=== PATIENT | male | born 2000 | race Caucasian/White ===

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

== ENCOUNTER 2021-01-24 14:21 | Emergency (ER) | payer OTHER, SELFPAY ==
[2021-01-24 14:26] VITALS: BP 139/76; PULSE 88; RESP 18; TEMP 36.5; O2SAT 98; BMI 43.5
--- NOTE | 2021-01-24 14:36 | ED_ITS ---
HPI - COVID General: Chief Complaint: COVID symptoms Stated Complaint: Abdominal Pain, Hx Stomach issues Time Seen by Provider: 01/24/21 14:36 Triage information: Has fever, cough or shortness of breath . Exposure to COVID + person last 14 days History of Present Illness: HPI Narrative: 20-year-old male presents to the ER with abdominal discomfort diarrhea vomiting myalgias low-grade fever minimal cough symptoms for the last 2 to 3 days he is concerned he is Covid. He is not having hematochezia melena hematemesis or coffee-ground emesis no dysuria urgency or frequency. He has had diarrhea during this timeframe. He has a known Covid exposure prior to onset of symptoms. MD complaint: reported COVID exposure Prior covid testing: no COVID 19 common symptoms: positive fever(s), chills, cough, non-productive cough, fatigue, body aches, nausea, vomiting and diarrhea; negative productive cough, dyspnea, headache(s), loss of sense of smell and/or taste, throat pain, nasal congestion or chest tightness COVID 19 other sytmptoms: negative chest pain or requiring oxygen Onset (ago): day(s) (3) Severity: mild Pertinent comorbid conditions: obesity Treatment prior to arrival: none COVID Results: SARS-CoV-2 RNA (RT-PCR) Not detected (NOT DETECTED) 01/24/21 14:51 01/24/21 Review of Systems Const: Reports: fever(s), chills, body aches and fatigue ENMT: Denies: throat pain or nasal congestion Card: Denies: chest pain, edema, dyspnea on exertion or orthopnea Resp: Reports: non-productive cough; Denies: dyspnea or productive cough GI: Reports: nausea, vomiting and diarrhea : Denies: flank pain, dysuria, urinary frequency or urinary urgency Skin/Breast: Denies: rash or pruritus Neuro: Denies: headache(s) Physical Exam Const: COMMON NORMALS: no acute distress GENERAL APPEARANCE: cooperative and comfortable ORIENTATION/CONSCIOUSNESS: Yes awake, Yes oriented to person, Yes oriented to place and Yes oriented to time HENMT: COMMON NORMALS: normocephalic, atraumatic and hearing grossly normal bilaterally HEAD & SCALP: normocephalic and atraumatic Neck/C-Spine: COMMON NORMALS: no JVD Resp: COMMON NORMALS: normal respiratory effort, No retractions, No use of accessory muscles and clear to auscultation bilaterally AUSCULTATION: clear to auscultation bilaterally Cardio: COMMON NORMALS: no JVD, regular rate, regular rhythm and No murmurs present (Cardio) RATE: regular rate RHYTHM: regular rhythm GI: COMMON NORMALS: Soft to palpation and No hepatosplenomegaly present AUSCULTATION: Yes normoactive bowel sounds PALPATION: Yes Soft to palpation, No Tenderness to palpation present (GI), No Guarding due to palpation present (GI) and Yes No hepatosplenomegaly present Extremity: COMMON NORMALS: normal to inspection, capillary refill normal, no clubbing, cyanosis or edema, no calf tenderness and no pedal edema Neuro: SENSORIUM/ORIENTATION: Yes oriented to person, Yes oriented to place and Yes oriented to time Skin: COMMON NORMALS: no rashes or lesions noted GENERAL SKIN EXAM: no rashes or lesions noted Course Vital Signs: Vital signs: Vital Signs Temperature 97.7 F 01/24/21 14:26 Pulse Rate 89 01/24/21 17:37 Respiratory Rate 17 01/24/21 17:37 Blood Pressure 132/74 01/24/21 17:37 Pulse Oximetry 98 01/24/21 17:37 MDM - COVID MDM Narrative: Medical decision making narrative: Clinically along with his history I do suspect he is likely to have Covid. At this time he is seems to be tolerating well he has no hypoxia his exam is essentially normal labs and imaging reviewed as available on chart. Recommend discharge home maintain self quarantine supportive cares. If symptoms worsen or change return to the emergency room. Lab Data: Labs: Lab Results 01/24/21 01/24/21 01/24/21 14:51 15:00 15:00 WBC 9.2 10^3/uL 10^3/ uL (4.5-13.0) RBC 5.34 10^6/uL H 10 ^6/uL (4.1-5.3) Hgb 14.7 g/dL g/dL (11.7-16.6) Hct 44.6 % % (42.0-52.0) MCV 83.5 fl fl (80-94) MCH 27.5 pg L pg (28.0-34.0) MCHC 33.0 g/dL g/dL (30.0-36.0) RDW 13.5 % % (12.1-15.1) Plt Count 264 10^3/cmm 10^3 /cmm (130-400) MPV 11.4 fL H fL (7.4-10.4) Neut % (Auto) 58.7 % % Lymph % (Auto) 30.8 % % [place] % (Auto) 7.5 % % Eos % (Auto) 1.8 % % Baso % (Auto) 0.9 % % Neut # (Auto) 5.41 10^3/uL 10^3 /uL (1.8-8.0) Lymph # (Auto) 2.8 10^3/uL 10^3/ uL (1.5-6.5) [place] # (Auto) 0.7 10^3/uL 10^3/ uL (0.2-0.9) Eos # (Auto) 0.2 10^3/uL 10^3/ uL (0.0-0.8) Baso # (Auto) 0.1 10^3/uL 10^3/ uL (0.0-0.1) Nucleated RBC % (a uto) 0 % % Nucleated RBCs # 0.0 /100WBC /100W BC Sodium Cancelled Potassium Cancelled Chloride Cancelled Carbon Dioxide Cancelled Anion Gap Cancelled BUN Cancelled Creatinine Cancelled GFR Calculation Cancelled Glucose Cancelled Calculated Osmolal ity Cancelled Calcium Cancelled Total Bilirubin Cancelled AST Cancelled ALT Cancelled Alkaline Phosphata se Cancelled Total Protein Cancelled Albumin Cancelled Globulin Cancelled Nasal/Oral COVID-1 9 PCR SARS-CoV-2 RNA (RT -PCR) Not detected (NOT DETECTED) 01/24/21 01/24/21 15:00 16:07 WBC RBC Hgb Hct MCV MCH MCHC RDW Plt Count MPV Neut % (Auto) Lymph % (Auto) [place] % (Auto) Eos % (Auto) Baso % (Auto) Neut # (Auto) Lymph # (Auto) [place] # (Auto) Eos # (Auto) Baso # (Auto) Nucleated RBC % (a uto) Nucleated RBCs # Sodium 137 mmol/L mmol/L (136-145) Potassium 4.3 mmol/L mmol/L (3.5-5.1) Chloride 102 mmol/L mmol/L (98-107) Carbon Dioxide 26 mmol/L mmol/L (22-29) Anion Gap 13.3 (5-19) BUN 11 mg/dL mg/dL (6-20) Creatinine 0.6 mg/dL L mg/dL (0.7-1.2) GFR Calculation 173.6 mL/min H mL /min (90-130) Glucose 81 mg/dL mg/dL (65-115) Calculated Osmolal ity 282 mOsm/kg L mOs m/kg (285-295) Calcium 9.6 mg/dL mg/dL (8.5-10.5) Total Bilirubin 0.2 mg/dL mg/dL (0.15-1.2) AST 34 U/L U/L (0-40) ALT 56 U/L H U/L (0-41) Alkaline Phosphata se 99 IU/L IU/L (40-130) Total Protein 8.2 g/dL g/dL (6.6-8.7) Albumin 4.6 g/dL g/dL (3.5-5.2) Globulin 3.6 g/dL g/dL (1.3-4.6) Nasal/Oral COVID-1 9 PCR Cancelled SARS-CoV-2 RNA (RT -PCR) COVID Results: SARS-CoV-2 RNA (RT-PCR) Not detected (NOT DETECTED) 01/24/21 14:51 01/24/21 Discharge Plan Discharge Patient Disposition: Home Clinical Impression: Suspected 2019-nCoV infection Condition: Stable Prescriptions: No Action Celebrex 100 mg capsule 100 mg PO BID Qty: 20 RF: 0 Discharge Orders: Discharge ED (Routine); Ordered 01/24/21 Ordered By: Dominic Eastman Referrals: Mansoor Crump MD [Primary Care Provider] - Discharge Diet: Usual diet Patient Instructions: Opioid Safety Activity Restrictions/Additional Instructions: Suspected COVID-19 infection. He should maintain self quarantine until the results are available. Coding Level of Care Code ED Wrapper Stemmer Operator for Ej Fwd Exam Comprehensive
[2021-01-24 15:13] LABS: Basophils # 0.1 10^3/uL (0.0-0.1); Basophils % 0.9 %; Eosinophils # 0.2 10^3/uL (0.0-0.8); Eosinophils % 1.8 %; Hematocrit 44.6 % (42.0-52.0); Hemoglobin 14.7 g/dL (11.7-16.6); Lymphocytes # 2.8 10^3/uL (1.5-6.5); Lymphocytes % 30.8 %; Mean Corpuscular Hemoglobin 27.5 pg (28.0-34.0); Mean Corpuscular Volume 83.5 fl (80-94); Mean Platelet Volume 11.4 fL (7.4-10.4); Monocytes # 0.7 10^3/uL (0.2-0.9); Monocytes % 7.5 %; Neutrophils # 5.41 10^3/uL (1.8-8.0); Neutrophils % 58.7 %; Nucleated Red Blood Cells % 0 %; Platelet Count 264 10^3/cmm (130-400); Red Blood Count 5.34 10^6/uL (4.1-5.3); Red Cell Distribution Width 13.5 % (12.1-15.1); White Blood Count 9.2 10^3/uL (4.5-13.0)
[2021-01-24 15:19] VITALS: O2SAT 98
[2021-01-24 16:43] LABS: Alanine Aminotransferase 56 U/L (0-41); Albumin Level 4.6 g/dL (3.5-5.2); Alkaline Phosphatase 99 IU/L (40-130); Blood Urea Nitrogen 11 mg/dL (6-20); Calcium 9.6 mg/dL (8.5-10.5); Carbon Dioxide 26 mmol/L (22-29); Chloride 102 mmol/L (98-107); Globulin 3.6 g/dL (1.3-4.6); Glomerular Filtration Rate 173.6 mL/min (90-130); Glucose 81 mg/dL (65-115); Osmolality Calculated 282 mOsm/kg (285-295); Sodium 137 mmol/L (136-145); Total Bilirubin 0.2 mg/dL (0.15-1.2); Total Protein 8.2 g/dL (6.6-8.7)
[2021-01-24 17:03] LABS: Anion Gap 13.3 (5-19)
[2021-01-24 17:04] LABS: Aspartate Amino Transferase 34 U/L (0-40); Potassium 4.3 mmol/L (3.5-5.1)
[2021-01-24 17:37] VITALS: BP 132/74; PULSE 89; RESP 17; O2SAT 98
[2021-01-25 17:23] LABS: Quest SARS-CoV-2 RNA NOT DETECTED (NOT DETECTED)
--- NOTE | 2021-01-26 09:25 | PC.NURSE ---
Pt informed of Negative COVID test
== END 2021-01-24 17:26 | disposition home or self-care (01) ==
PROVIDERS: Emergency Provider Family Medicine; PCP Family Medicine
DX: Z20.822 Contact with and (suspected) exposure to COVID-19 (principal)
CPT/HCPCS: 36415; 80053; 85025; 87635; 99281

== ENCOUNTER 2021-02-23 08:19 | Emergency (ER) | payer OTHER, SELFPAY ==
[2021-02-23 08:34] VITALS: BMI 41.1
[2021-02-23 08:38] VITALS: BP 145/79; PULSE 70; PULSE 75; RESP 16; O2SAT 98
--- NOTE | 2021-02-23 09:00 | ED_ITS ---
HPI - Abdominal Pain General: Chief Complaint: Abdominal Pain Stated Complaint: THROWING UP Time Seen by Provider: 02/23/21 08:32 History of Present Illness: HPI narrative: 20-year-old male presents emergency room with complaint of abdominal pain for the last 1 to 2 months. He was seen for previously started on medication but he cannot really recall what it was he started taking more. Complains of vomiting overnight denies hematochezia melena hematemesis or coffee-ground emesis. He denies any diarrhea associated with this. No dysuria urgency or frequency. He has not noticed any particular foods that worsen he has not noticed anything that exacerbates or relieves. MD elicited complaint: abdominal pain Onset (ago): hour(s) Pain Consistency: intermittent Location: Epigastric and Suprapubic Severity: mild Quality: cramping Radiation: none Migration to: no migration Exacerbating factors: nothing Relieving factors: nothing Associated Symptoms: Reports poor appetite and vomiting; Denies anorexia, belching, bloating, change in bowel habits, change in stool character, chills, coffee ground emesis, constipation, GI cramping, diarrhea, dyspepsia, dysuria, excessive flatus, fever(s), heartburn, hematochezia, hematuria, hematemesis, fecal incontinence, loose stools, melena, nausea and syncope Review of Systems Const: Denies: fever(s) or chills ENMT: Denies: throat pain, ear or mastoid pain, nasal discharge or nasal congestion Card: Denies: syncope Resp: Denies: dyspnea, productive cough or non-productive cough GI: Reports: vomiting; Denies: nausea, hematemesis, coffee ground emesis, heartburn, diarrhea, constipation, bloating, GI cramping, belching, excessive flatus, fecal incontinence, change in bowel habits, change in stool character, hematochezia or melena : Denies: dysuria or hematuria Skin/Breast: Denies: rash or pruritus Physical Exam Const: COMMON NORMALS: no acute distress GENERAL APPEARANCE: cooperative and comfortable ORIENTATION/CONSCIOUSNESS: Yes awake, Yes oriented to person, Yes oriented to place and Yes oriented to time HENMT: COMMON NORMALS: normocephalic, atraumatic, hearing grossly normal bilaterally, external ears normal, EAC's normal, TM's normal bilaterally, Normal nasal mucous membranes and turbinates present, moist oral mucous membranes and oropharynx normal HEAD & SCALP: normocephalic and atraumatic NOSE: Normal nasal mucous membranes and turbinates present EXTERNAL EAR: Yes external ears normal EXTERNAL AUDITORY CANAL: EAC's normal TYMPANIC MEMBRANE: TM's normal bilaterally Eye: COMMON NORMALS: Equal, round and reactive pupils present, EOMs intact bilaterally, conjunctivae normal and no scleral icterus CONJUNCTIVA: Yes conjunctivae normal PUPIL: Yes Equal, round and reactive pupils present Neck/C-Spine: COMMON NORMALS: full ROM, no lymphadenopathy, supple and no JVD Lymph: LYMPHATIC: no lymphadenopathy noted and no lymphedema noted Resp: COMMON NORMALS: normal respiratory effort, No retractions, No use of accessory muscles and clear to auscultation bilaterally AUSCULTATION: clear to auscultation bilaterally Cardio: COMMON NORMALS: no JVD, regular rate, regular rhythm and No murmurs present (Cardio) RATE: regular rate RHYTHM: regular rhythm GI: COMMON NORMALS: Soft to palpation and No hepatosplenomegaly present AUSCULTATION: Yes normoactive bowel sounds PALPATION: Yes Soft to palpation, No Tenderness to palpation present (GI), No Guarding due to palpation present (GI) and Yes No hepatosplenomegaly present Extremity: COMMON NORMALS: normal to inspection, capillary refill normal, no clubbing, cyanosis or edema, no calf tenderness and no pedal edema Neuro: SENSORIUM/ORIENTATION: Yes oriented to person, Yes oriented to place and Yes oriented to time Skin: COMMON NORMALS: no rashes or lesions noted GENERAL SKIN EXAM: no rashes or lesions noted Course Vital Signs: Vital signs: Vital Signs Pulse Rate 58 L 02/23/21 11:26 Respiratory Rate 16 02/23/21 11:26 Blood Pressure 133/85 02/23/21 11:26 Pulse Oximetry 97 02/23/21 11:26 MDM - Abdominal Pain MDM Narrative: Medical decision making narrative: Labs imaging and EKG reviewed. We will go ahead and discharge patient home start on Protonix and Zofran to use as needed follow-up with primary care doctor if has worsening or persistence of symptoms may need to have EGD done and or further evaluation. At this time no evidence of acute cholecystitis history is not particularly consistent with biliary colic. Lab Data: Labs: Lab Results 02/23/21 02/23/21 02/23/21 09:45 09:45 09:45 WBC 8.7 10^3/uL 10^3/ uL (4.5-13.0) RBC 5.47 10^6/uL H 10 ^6/uL (4.1-5.3) Hgb 14.9 g/dL g/dL (11.7-16.6) Hct 45.3 % % (42.0-52.0) MCV 82.8 fl fl (80-94) MCH 27.2 pg L pg (28.0-34.0) MCHC 32.9 g/dL g/dL (30.0-36.0) RDW 13.2 % % (12.1-15.1) Plt Count 279 10^3/cmm 10^3 /cmm (130-400) MPV 11.3 fL H fL (7.4-10.4) Neut % (Auto) 54.2 % % Lymph % (Auto) 35.6 % % [place] % (Auto) 6.7 % % Eos % (Auto) 2.5 % % Baso % (Auto) 0.9 % % Neut # (Auto) 4.70 10^3/uL 10^3 /uL (1.8-8.0) Lymph # (Auto) 3.1 10^3/uL 10^3/ uL (1.5-6.5) [place] # (Auto) 0.6 10^3/uL 10^3/ uL (0.2-0.9) Eos # (Auto) 0.2 10^3/uL 10^3/ uL (0.0-0.8) Baso # (Auto) 0.1 10^3/uL 10^3/ uL (0.0-0.1) Nucleated RBC % (a uto) 0 % % Nucleated RBCs # 0.0 /100WBC /100W BC Sodium 138 mmol/L mmol/L (136-145) Potassium 4.6 mmol/L mmol/L (3.5-5.1) Chloride 101 mmol/L mmol/L (98-107) Carbon Dioxide 26 mmol/L mmol/L (22-29) Anion Gap 15.6 (5-19) BUN 10 mg/dL mg/dL (6-20) Creatinine 0.7 mg/dL mg/dL (0.7-1.2) GFR Calculation 145.3 mL/min H mL /min (90-130) Glucose 67 mg/dL mg/dL (65-115) Calculated Osmolal ity 283 mOsm/kg L mOs m/kg (285-295) Calcium 9.6 mg/dL mg/dL (8.5-10.5) Total Bilirubin 0.2 mg/dL mg/dL (0.15-1.2) AST 22 U/L U/L (0-40) ALT 37 U/L U/L (0-41) Alkaline Phosphata se 104 IU/L IU/L (40-130) Total Protein 8.2 g/dL g/dL (6.6-8.7) Albumin 4.7 g/dL g/dL (3.5-5.2) Globulin 3.5 g/dL g/dL (1.3-4.6) Lipase 18 U/L U/L (13-60) Urine Color Straw (Yellow) Urine Appearance Clear (CLEAR) Urine pH 5 (5-7) Ur Specific Gravit y 1.010 (1.005-1.030) Urine Protein Neg (Negative) Urine Glucose (UA) Norm (Normal) Urine Ketones Negative (Negative) Urine Blood Neg (Negative) Urine Nitrate Negative (Negative) Urine Bilirubin Neg (Negative) Urine Urobilinogen Norm mg/dL mg/dL (Negative) Ur Leukocyte Rosy ase Negative (Negative) Discharge Plan Discharge Patient Disposition: Home Clinical Impression: Abdominal pain, GERD with esophagitis Condition: Stable Prescriptions: New Zofran 4 mg tablet 4 mg PO Q6H PRN (Reason: nausea and vomiting) Qty: 20 RF: 0 Protonix 40 mg tablet,delayed release (DR/EC) 40 mg PO QAM 56 Days Qty: 56 RF: 0 No Action Celebrex 100 mg capsule 100 mg PO BID Qty: 20 RF: 0 Discharge Orders: Discharge ED (Routine); Ordered 02/23/21 Ordered By: Dominic Eastman Referrals: Mansoor Crump MD [Primary Care Provider] - Discharge Diet: As Directed Discharge Activity: Increase activity as tolerated Patient Instructions: Abdominal Pain (ED), Opioid Safety Activity Restrictions/Additional Instructions: Follow-up with your primary care doctor within the next 4 to 5 days. Return for worsening problems. Coding Level of Care Code ED Agronomy Teacher for Chg Fwd Exam Comprehensive
[2021-02-23] MEDS: sodium chloride 0.9% 1,000 ML 999 ML IV (09:41)
[2021-02-23] MEDS: ondansetron 2 mg/ML SDV 2 mL 4 MG IVP (09:42)
[2021-02-23 09:59] LABS: Basophils # 0.1 10^3/uL (0.0-0.1); Basophils % 0.9 %; Eosinophils # 0.2 10^3/uL (0.0-0.8); Eosinophils % 2.5 %; Hematocrit 45.3 % (42.0-52.0); Hemoglobin 14.9 g/dL (11.7-16.6); Lymphocytes # 3.1 10^3/uL (1.5-6.5); Lymphocytes % 35.6 %; Mean Corpuscular HGB Conc 32.9 g/dL (30.0-36.0); Mean Corpuscular Hemoglobin 27.2 pg (28.0-34.0); Mean Corpuscular Volume 82.8 fl (80-94); Mean Platelet Volume 11.3 fL (7.4-10.4); Monocytes # 0.6 10^3/uL (0.2-0.9); Monocytes % 6.7 %; Neutrophils % 54.2 %; Nucleated Red Blood Cells % 0 %; Platelet Count 279 10^3/cmm (130-400); Red Blood Count 5.47 10^6/uL (4.1-5.3); Red Cell Distribution Width 13.2 % (12.1-15.1); White Blood Count 8.7 10^3/uL (4.5-13.0)
[2021-02-23 10:12] LABS: Alanine Aminotransferase 37 U/L (0-41); Albumin Level 4.7 g/dL (3.5-5.2); Alkaline Phosphatase 104 IU/L (40-130); Aspartate Amino Transferase 22 U/L (0-40); Blood Urea Nitrogen 10 mg/dL (6-20); Calcium 9.6 mg/dL (8.5-10.5); Carbon Dioxide 26 mmol/L (22-29); Chloride 101 mmol/L (98-107); Globulin 3.5 g/dL (1.3-4.6); Glomerular Filtration Rate 145.3 mL/min (90-130); Glucose 67 mg/dL (65-115); Lipase 18 U/L (13-60); Osmolality Calculated 283 mOsm/kg (285-295); Sodium 138 mmol/L (136-145); Total Bilirubin 0.2 mg/dL (0.15-1.2); Total Protein 8.2 g/dL (6.6-8.7)
[2021-02-23 10:13] LABS: Anion Gap 15.6 (5-19); Potassium 4.6 mmol/L (3.5-5.1)
[2021-02-23 10:18] LABS: Add Urine Microscopic? NO; Charge for UA Resulting for Rev
[2021-02-23 10:22] LABS: Urine Appearance Clear (CLEAR); Urine Color Straw (Yellow); pH Urine 5 (5-7)
[2021-02-23 10:23] LABS: Bilirubin Urine Neg (Negative); Blood Urine Neg (Negative); Glucose Urine UA Norm (Normal); Ketones Urine Negative (Negative); Leukocyte Esterase Urine Negative (Negative); Nitrate Urine Negative (Negative); Protein Urine Neg (Negative); Urobilinogen Urine Norm (Negative)
--- NOTE | 2021-02-23 11:23 | PC.NURSE ---
1000 mL of 2000 mL NaCl ordered given and approved by Dr Eastman prior to discharge. Last 1000 mL returned to [facility].
[2021-02-23 11:26] VITALS: BP 133/85; PULSE 58; RESP 16; O2SAT 97
== END 2021-02-23 11:20 | disposition home or self-care (01) ==
PROVIDERS: Emergency Provider Family Medicine; PCP Family Medicine
DX: R10.9 Unspecified abdominal pain (principal); K21.00 Gastro-esophageal reflux disease with esophagitis, without bleeding
CPT/HCPCS: 80053; 81003; 83690; 85025; 96374; 99283; J2405; J7030

== ENCOUNTER 2021-03-02 09:02 | Outpatient (CLI) | payer OTHER, SELFPAY ==
--- NOTE | 2021-03-02 09:11 | CT_ITS ---
WS: [id number] CT ABDOMEN WITH AND WITHOUT CONTRAST CT pelvis: With and without contrast. Pelvis CT was not ordered but was performed inadvertently. This examination will be interpreted but no charge. HISTORY: VOMITING/GENERALIZED ABDOMINAL PAIN Contiguous single phase 5 mm axial imaging performed to the abdomen with and without contrast. Oral c ontrast has not been provided. Coronal and sagittal reformats are submitted. All CT scans at [facility] use at least one of these dose optimization techniques: automated exposure control; mA and /or kV adjustment per patient size (includes targeted exams where dose is matched to clinical indicat ion); or iterative reconstruction. CONTRAST: Omnipaque 300; 95 mL IV. DLP: 3732.84 mGy.cm COMPARISON: None available. Lower thorax: Lung bases are clear. No pericardial effusion. No hiatal hernia. Liver: Normal. No intrahepatic dilatation. Gallbladder: Normal. Pancreas: Normal. Spleen: Normal. Adrenals: Normal. Right kidney: No obstruction or stone. No perinephric stranding. Left kidney: Focal atrophy of the LEFT kidney involving the lower pole. There is cortical thinning an d scarring in the lower pole. No mass or obstruction. Aorta: Normal. GI tract: Normal. Normal appendix. No GI tract obstruction. No mucosal thickening or hyperemia. There are very few small central mesenteric and RIGHT lower quadrant and retroperitoneal lymph nodes. These are all subcentimeter. No free air or free fluid. Abdominal wall: Small fat-containing umbilical hernia. Visualized osseous structures: Unremarkable. CT/CT abdomen wo/w con [id number] IMPRESSION: 1. No acute abdominal or pelvic abnormalities are identified. 2. Normal appendix. 3. Focal cortical thinning and scarring lower pole LEFT kidney appears chronic . 4. Negative gallbladder.
[2021-03-02] MEDS: iohexol 300 mg/mL 100 mL Btl IV (10:10)
== END 2021-03-02 09:03 | disposition home or self-care (01) ==
LOC: RAD 09:04
PROVIDERS: PCP Family Medicine; Visit Provider Family Medicine
DX: R11.10 Vomiting, unspecified (principal); R10.84 Generalized abdominal pain
CPT/HCPCS: 74170

== ENCOUNTER 2022-11-08 09:16 | Emergency (ER) | payer SELFPAY ==
[2022-11-08 09:29] VITALS: BP 152/77; PULSE 63; RESP 18; TEMP 36.8; O2SAT 99; BMI 40.3
[2022-11-08 09:54] LABS: Basophils # 0.1 10^3/uL (0.0-0.1); Basophils % 0.8 %; Eosinophils # 0.4 10^3/uL (0.0-0.8); Eosinophils % 2.9 %; Hematocrit 44.5 % (42.0-52.0); Hemoglobin 14.6 g/dL (11.7-16.6); Lymphocytes % 24.5 %; Mean Corpuscular HGB Conc 32.8 g/dL (30.0-36.0); Mean Corpuscular Hemoglobin 26.6 pg (28.0-34.0); Mean Corpuscular Volume 81.2 fl (80-94); Mean Platelet Volume 12.1 fL (7.4-10.4); Monocytes # 0.7 10^3/uL (0.2-0.9); Monocytes % 5.6 %; Neutrophils # 7.93 10^3/uL (1.8-7.7); Nucleated Red Blood Cells % 0 %; Platelet Count 240 10^3/cmm (130-400); Red Blood Count 5.48 10^6/uL (4.1-5.3)
--- NOTE | 2022-11-08 09:55 | CT_ITS ---
WS: [id number] CT ABDOMEN AND PELVIS NONCONTRAST HISTORY: Right flank pain TECHNIQUE: Imaging performed through the abdomen and pelvis. Coronal and sagittal reformats are submi tted. All CT scans at [facility] use at least one of these dose optimization techniques: auto mated exposure control; mA and/or kV adjustment per patient size (includes targeted exams where dose is matched to clinical indication); or iterative reconstruction. DLP: 1047.50 mGy.cm COMPARISON: 02/28/2021 Lower thorax: Lung bases are clear. Visualized heart is normal. No hiatal hernia. Liver: Moderate hepatomegaly and hepatic steatosis. No mass or bile duct dilatation. Gallbladder: Normal gallbladder. No pericholecystic fluid or cholelithiasis. No gallbladder wall thic kening. Pancreas: Normal size and attenuation. Normal pancreatic duct. No pancreatitis or mass. Spleen: Normal. Adrenal glands: Normal. No mass. Right kidney: Normal size kidney. Very mild dilatation of the renal pelvis and RIGHT ureter. 4 mm dis dixie ureteral calcification is causing the mild obstruction. Additional 2 mm calcifications in the [place] pelvis are nonobstructing. Left kidney: Normal size kidney. Chronic nodularity and cortical thinning in the lower pole. No obstr uction. Aorta: Normal abdominal aorta, no aneurysm or atherosclerosis. No free fluid, intraperitoneal air or significant lymphadenopathy. GI tract: Normal noncontrast imaging of the stomach, small bowel and colon. No obstruction or wall th ickening. Normal appendix. Abdominal wall: Small umbilical hernia contains fat only. Pelvis: No free fluid or adenopathy. Nondistended urinary bladder. Osseous structures: Bone island RIGHT acetabulum. CT/CT kidney stone [id number] IMPRESSION: 1. Mild RIGHT hydroureteronephrosis secondary to a 4 mm distal ureteral calcif ication. 2. Additional nonobstructing RIGHT renal calcifications. 3. Normal appendix. 4. Chronic cortical thinning lower pole LEFT kidney. 5. Moderate hepatic steatosis and hepatomegaly.
[2022-11-08 10:02] VITALS: BP 142/76; PULSE 59; RESP 16; O2SAT 100
--- NOTE | 2022-11-08 10:03 | W.ED.ABDPA2 ---
Documented by User: SNEHA Gold 11/08/22 12:22 HPI - Abdominal Pain General: Chief Complaint: Abdominal Pain Stated Complaint: NV/RT ABD pain Time Seen by Provider: 11/08/22 09:18 History of Present Illness: Patient is a 22-year-old male who comes to the ED with right flank pain. Symptoms started at 6:00 in the morning when he woke up. He describes having sharp pain in his right lower back that radiates around to his abdomen. He rates the pain currently a 8 out of 10. He has never had abdominal pain like this before. He is having nausea and vomiting since onset of pain as well. He cannot keep any food or fluids down. Denies any worsening or improving factors. Patient endorses having some dark-colored urine, but denies any dysuria or hematuria. Denies any past abdominal surgeries or history of kidney stones. Denies any fevers. Associated Symptoms: Reports nausea and vomiting; Denies chills, constipation, diarrhea, dysuria, fever(s), hematochezia and hematuria Review of Systems Const: Denies: fever(s), chills or fatigue Eyes: Denies: change in vision or eye discomfort ENMT: Denies: throat pain, odynophagia, nasal discharge or nasal congestion Card: Denies: chest pain, palpitations, edema, swelling of feet/ankles, dyspnea on exertion or orthopnea Resp: Denies: dyspnea, productive cough or non-productive cough GI: Reports: nausea and vomiting; Denies: abdominal pain, diarrhea, constipation or hematochezia : Reports: flank pain; Denies: difficulty urinating, dysuria or hematuria Musc: Denies: neck pain, back pain or extremity swelling Skin/Breast: Denies: rash or new lesions Neuro: Denies: headache(s), numbness in extremities or weakness in extremities PFSH ED PFSH: Medical History (Updated 11/08/22 @ 12:21 by SNEHA Gold) No pertinent family history Surgical History (Updated 11/08/22 @ 12:20 by SNEHA Gold) No pertinent past surgical history Physical Exam Const: COMMON NORMALS: patient oriented x3, healthy appearing and alert HENMT: COMMON NORMALS: normocephalic HEAD & SCALP: normocephalic MOUTH: Normal oral and palatal mucosa present THROAT: posterior oropharynx normal and uvula midline Neck/C-Spine: COMMON NORMALS: supple GENERAL: Yes normal visual inspection Resp: COMMON NORMALS: normal respiratory effort, No retractions, No use of accessory muscles and clear to auscultation bilaterally AUSCULTATION: clear to auscultation bilaterally Cardio: COMMON NORMALS: regular rate, regular rhythm, S1 normal heart sound present, S2 normal heart sound present, No gallops present (Cardio), No clicks present (Cardio), No murmurs present (Cardio) and Peripheral pulses 2+ throughout RATE: regular rate RHYTHM: regular rhythm HEART SOUNDS: S1 normal heart sound present and S2 normal heart sound present PERIPHERAL PULSES: Peripheral pulses 2+ throughout GI: COMMON NORMALS: Normal to inspection, nondistended, normoactive bowel sounds present, Soft to palpation and no masses PALPATION: Yes Soft to palpation and Yes Tenderness to palpation present (GI) Details: RLQ and RUQ OTHER: Generalized right-sided abdominal tenderness. : BLADDER/KIDNEY EXAM: Yes CVA tenderness on the right Back/Pelvis: GENERAL BACK: Yes CVA tenderness Neuro: COMMON NORMALS: patient oriented x3 SENSORIUM/ORIENTATION: Yes alert GAIT: Yes Normal gait present Skin: GENERAL SKIN EXAM: dry skin Course Vital Signs: Vital signs: Vital Signs Temperature 98.2 F 11/08/22 09:29 Pulse Rate 60 11/08/22 12:15 Respiratory Rate 17 11/08/22 11:35 Blood Pressure 132/79 11/08/22 12:15 Pulse Oximetry 99 11/08/22 12:15 Oxygen Delivery Me thod Room Air 11/08/22 11:35 MDM - Abdominal Pain Medical Decision Making Patient is a 22-year-old male who comes to the ED with right flank pain. Symptoms started at 6:00 in the morning when he woke up. He describes having sharp pain in his right lower back that radiates around to his abdomen. He rates the pain currently a 8 out of 10. He has never had abdominal pain like this before. He is having nausea and vomiting since onset of pain as well. He cannot keep any food or fluids down. Denies any worsening or improving factors. Patient endorses having some dark-colored urine, but denies any dysuria or hematuria. Denies any past abdominal surgeries or history of kidney stones. Denies any fevers. Vital stable. Patient has some generalized right-sided abdominal tenderness and right CVA tenderness. Rest of exam is benign. CBC and CMP are unremarkable. UA shows blood and possible signs of start of a UTI. CT abdomen pelvis shows right distal ureteral stone with 4 mm in size. I placed an order with case management for patient be referred to urologist for follow-up on kidney stone. Patient was given IV dose of 1 L fluids, nausea meds, morphine and Toradol and his symptoms improved. He rates his pain manageable 3 out of 10. Patient was stable for discharge home and diagnosed with a kidney stone. Sent home with a prescription for some hydrocodone for acute pain, Zofran, naproxen and Bactrim to cover possible developing UTI. Return to ED precautions given. Patient understood and agreed with plan. Lab Data I reviewed the patient's lab results. 11/08/22 09:40 11/08/22 09:40 Labs/Radiology: Radiology Impressions Abdomen/Pelvis CT 11/08/22 09:55 IMPRESSION: 1. Mild RIGHT hydroureteronephrosis secondary to a 4 mm distal ureteral calcification. 2. Additional nonobstructing RIGHT renal calcifications. 3. Normal appendix. 4. Chronic cortical thinning lower pole LEFT kidney. 5. Moderate hepatic steatosis and hepatomegaly. Laboratory Results WBC 12.0 10^3/uL (4.0-10.0) H 11/08/22 09:40 RBC 5.48 10^6/uL (4.1-5.3) H 11/08/22 09:40 Hgb 14.6 g/dL (11.7-16.6) 11/08/22 09:40 Hct 44.5 % (42.0-52.0) 11/08/22 09:40 MCV 81.2 fl (80-94) 11/08/22 09:40 MCH 26.6 pg (28.0-34.0) L 11/08/22 09:40 MCHC 32.8 g/dL (30.0-36.0) 11/08/22 09:40 RDW 14.0 % (12.1-15.1) 11/08/22 09:40 Plt Count 240 10^3/cmm (130-400) 11/08/22 09:40 MPV 12.1 fL (7.4-10.4) H 11/08/22 09:40 Neut % (Auto) 66.0 % 11/08/22 09:40 Lymph % (Auto) 24.5 % 11/08/22 09:40 [place] % (Auto) 5.6 % 11/08/22 09:40 Eos % (Auto) 2.9 % 11/08/22 09:40 Baso % (Auto) 0.8 % 11/08/22 09:40 Neut # (Auto) 7.93 10^3/uL (1.8-7.7) H 11/08/22 09:40 Lymph # (Auto) 3.0 10^3/uL (0.8-4.8) 11/08/22 09:40 [place] # (Auto) 0.7 10^3/uL (0.2-0.9) 11/08/22 09:40 Eos # (Auto) 0.4 10^3/uL (0.0-0.8) 11/08/22 09:40 Baso # (Auto) 0.1 10^3/uL (0.0-0.1) 11/08/22 09:40 Nucleated RBC % (auto) 0 % 11/08/22 09:40 Nucleated RBCs # 0.0 /100WBC 11/08/22 09:40 Sodium 142 mmol/L (136-145) 11/08/22 09:40 Potassium 3.7 mmol/L (3.5-5.1) 11/08/22 09:40 Chloride 105 mmol/L (98-107) 11/08/22 09:40 Carbon Dioxide 22 mmol/L (22-29) 11/08/22 09:40 Anion Gap 18.7 (5-19) 11/08/22 09:40 BUN 12 mg/dL (6-20) 11/08/22 09:40 Creatinine 0.8 mg/dL (0.7-1.2) 11/08/22 09:40 GFR Calculation 122.0 mL/min (90-130) 11/08/22 09:40 Glucose 115 mg/dL (65-115) 11/08/22 09:40 Calculated Osmolality 295 mOsm/kg (285-295) 11/08/22 09:40 Calcium 9.9 mg/dL (8.5-10.5) 11/08/22 09:40 Total Bilirubin 0.2 mg/dL (0.15-1.2) 11/08/22 09:40 AST 23 U/L (0-40) 11/08/22 09:40 ALT 41 U/L (0-41) 11/08/22 09:40 Alkaline Phosphatase 98 U/L (40-130) 11/08/22 09:40 Total Protein 7.8 g/dL (6.6-8.7) 11/08/22 09:40 Albumin 4.5 g/dL (3.5-5.2) 11/08/22 09:40 Globulin 3.3 g/dL (1.3-4.6) 11/08/22 09:40 Lipase 23 U/L (13-60) 11/08/22 09:40 Urine Color Kimmie (Yellow) 11/08/22 09:50 Urine Appearance Cloudy (CLEAR) A 11/08/22 09:50 Urine pH 5 (5-7) 11/08/22 09:50 Ur Specific [place] 1.025 (1.005-1.030) 11/08/22 09:50 Urine Protein 2+ (Negative) H 11/08/22 09:50 Urine Glucose (UA) Norm (Normal) 11/08/22 09:50 Urine Ketones Negative (Negative) 11/08/22 09:50 Urine Blood 3+ (Negative) H 11/08/22 09:50 Urine Nitrate Negative (Negative) 11/08/22 09:50 Urine Bilirubin 1+ (Negative) H 11/08/22 09:50 Urine Urobilinogen 1 mg/dL (Negative) H 11/08/22 09:50 Ur Leukocyte Esterase Negative (Negative) 11/08/22 09:50 Urine RBC 50-80 /hpf (0-2) H 11/08/22 09:50 Urine WBC 10-15 /hpf (0-5) H 11/08/22 09:50 Ur Squamous Epith Cells 0-4 /hpf (0-5) H 11/08/22 09:50 Amorphous Sediment Not Reportable 11/08/22 09:50 Urine Bacteria 1+ /hpf (NONE) H 11/08/22 09:50 Discharge Plan Discharge Patient Disposition: Home Clinical Impression: Kidney stone on right side UTI (urinary tract infection) Qualifiers: Urinary tract infection type: acute cystitis Hematuria presence: with hematuria Qualified Code(s): N30.01 - Acute cystitis with hematuria Condition: Stable Prescriptions: New Naprosyn 500 mg tablet 500 mg PO BID PRN (Reason: pain) Qty: 20 0RF ondansetron 4 mg tablet,disintegrating 4 mg PO Q8H PRN (Reason: nausea and vomiting) Qty: 20 0RF Bactrim DS 800-160 mg tablet 1 tab PO BID 5 Days Qty: 10 0RF Discharge Orders: Discharge ED (Routine); Ordered 11/08/22 Ordered By: Nakul Cervantes Referrals: Mansoor Crump MD [Primary Care Provider] - Discharge Diet: Advance as tolerated and Clear Liquid Discharge Activity: Increase activity as tolerated Patient Instructions: Kidney Stones (ED), Opioid Safety Activity Restrictions/Additional Instructions: Follow-up with medical provider as directed. Case management should be contacted in the next several days set up an appointment with urologist for follow-up. Take medications as prescribed. Return to the ER or your medical provider if condition worsens. Please read and understand discharge instructions. Thank you for choosing [facility] for your healthcare needs today. Please realize this is an emergency room and that we are providing you with a medical screening exam and this may not be complete and all inclusive of all the testing and or work up that you may need to determine your ailment or severity of your illness. It is very important that you follow up as instructed or that you return to the Emergency Department should you have concerns or if your condition changes or worsens in any way. Coding Level of Care Code ED Web Services Manager for Chg Fwd Documented by User: Dominic Easmtan DO 11/09/22 07:06 HPI - Abdominal Pain General: Chief Complaint: Abdominal Pain Stated Complaint: NV/RT ABD pain Time Seen by Provider: 11/08/22 09:18 [facility] ED PFSH: Medical History (Updated 11/08/22 @ 12:21 by SNEHA Gold) No pertinent family history Surgical History (Updated 11/08/22 @ 12:20 by SNEHA Gold) No pertinent past surgical history Course Vital Signs: Vital signs: Vital Signs Temperature 98.2 F 11/08/22 09:29 Pulse Rate 60 11/08/22 12:15 Respiratory Rate 17 11/08/22 11:35 Blood Pressure 132/79 11/08/22 12:15 Pulse Oximetry 99 11/08/22 12:15 Oxygen Delivery Me thod Room Air 11/08/22 11:35 MDM - Abdominal Pain Medical Decision Making Patient is a 22-year-old male who comes to the ED with right flank pain. Symptoms started at 6:00 in the morning when he woke up. He describes having sharp pain in his right lower back that radiates around to his abdomen. He rates the pain currently a 8 out of 10. He has never had abdominal pain like this before. He is having nausea and vomiting since onset of pain as well. He cannot keep any food or fluids down. Denies any worsening or improving factors. Patient endorses having some dark-colored urine, but denies any dysuria or hematuria. Denies any past abdominal surgeries or history of kidney stones. Denies any fevers. Vital stable. Patient has some generalized right-sided abdominal tenderness and right CVA tenderness. Rest of exam is benign. CBC and CMP are unremarkable. UA shows blood and possible signs of start of a UTI. CT abdomen pelvis shows right distal ureteral stone with 4 mm in size. I placed an order with case management for patient be referred to urologist for follow-up on kidney stone. Patient was given IV dose of 1 L fluids, nausea meds, morphine and Toradol and his symptoms improved. He rates his pain manageable 3 out of 10. Patient was stable for discharge home and diagnosed with a kidney stone. Sent home with a prescription for some hydrocodone for acute pain, Zofran, naproxen and Bactrim to cover possible developing UTI. Return to ED precautions given. Patient understood and agreed with plan. Chart reviewed and patient discussed with midlevel. Agree with assessment and plan. Lab Data 11/08/22 09:40 11/08/22 09:40 Labs/Radiology: Radiology Impressions Abdomen/Pelvis CT 11/08/22 09:55 IMPRESSION: 1. Mild RIGHT hydroureteronephrosis secondary to a 4 mm distal ureteral calcification. 2. Additional nonobstructing RIGHT renal calcifications. 3. Normal appendix. 4. Chronic cortical thinning lower pole LEFT kidney. 5. Moderate hepatic steatosis and hepatomegaly. Laboratory Results WBC 12.0 10^3/uL (4.0-10.0) H 11/08/22 09:40 RBC 5.48 10^6/uL (4.1-5.3) H 11/08/22 09:40 Hgb 14.6 g/dL (11.7-16.6) 11/08/22 09:40 Hct 44.5 % (42.0-52.0) 11/08/22 09:40 MCV 81.2 fl (80-94) 11/08/22 09:40 MCH 26.6 pg (28.0-34.0) L 11/08/22 09:40 MCHC 32.8 g/dL (30.0-36.0) 11/08/22 09:40 RDW 14.0 % (12.1-15.1) 11/08/22 09:40 Plt Count 240 10^3/cmm (130-400) 11/08/22 09:40 MPV 12.1 fL (7.4-10.4) H 11/08/22 09:40 Neut % (Auto) 66.0 % 11/08/22 09:40 Lymph % (Auto) 24.5 % 11/08/22 09:40 [place] % (Auto) 5.6 % 11/08/22 09:40 Eos % (Auto) 2.9 % 11/08/22 09:40 Baso % (Auto) 0.8 % 11/08/22 09:40 Neut # (Auto) 7.93 10^3/uL (1.8-7.7) H 11/08/22 09:40 Lymph # (Auto) 3.0 10^3/uL (0.8-4.8) 11/08/22 09:40 [place] # (Auto) 0.7 10^3/uL (0.2-0.9) 11/08/22 09:40 Eos # (Auto) 0.4 10^3/uL (0.0-0.8) 11/08/22 09:40 Baso # (Auto) 0.1 10^3/uL (0.0-0.1) 11/08/22 09:40 Nucleated RBC % (auto) 0 % 11/08/22 09:40 Nucleated RBCs # 0.0 /100WBC 11/08/22 09:40 Sodium 142 mmol/L (136-145) 11/08/22 09:40 Potassium 3.7 mmol/L (3.5-5.1) 11/08/22 09:40 Chloride 105 mmol/L (98-107) 11/08/22 09:40 Carbon Dioxide 22 mmol/L (22-29) 11/08/22 09:40 Anion Gap 18.7 (5-19) 11/08/22 09:40 BUN 12 mg/dL (6-20) 11/08/22 09:40 Creatinine 0.8 mg/dL (0.7-1.2) 11/08/22 09:40 GFR Calculation 122.0 mL/min (90-130) 11/08/22 09:40 Glucose 115 mg/dL (65-115) 11/08/22 09:40 Calculated Osmolality 295 mOsm/kg (285-295) 11/08/22 09:40 Calcium 9.9 mg/dL (8.5-10.5) 11/08/22 09:40 Total Bilirubin 0.2 mg/dL (0.15-1.2) 11/08/22 09:40 AST 23 U/L (0-40) 11/08/22 09:40 ALT 41 U/L (0-41) 11/08/22 09:40 Alkaline Phosphatase 98 U/L (40-130) 11/08/22 09:40 Total Protein 7.8 g/dL (6.6-8.7) 11/08/22 09:40 Albumin 4.5 g/dL (3.5-5.2) 11/08/22 09:40 Globulin 3.3 g/dL (1.3-4.6) 11/08/22 09:40 Lipase 23 U/L (13-60) 11/08/22 09:40 Urine Color Kimmie (Yellow) 11/08/22 09:50 Urine Appearance Cloudy (CLEAR) A 11/08/22 09:50 Urine pH 5 (5-7) 11/08/22 09:50 Ur Specific [place] 1.025 (1.005-1.030) 11/08/22 09:50 Urine Protein 2+ (Negative) H 11/08/22 09:50 Urine Glucose (UA) Norm (Normal) 11/08/22 09:50 Urine Ketones Negative (Negative) 11/08/22 09:50 Urine Blood 3+ (Negative) H 11/08/22 09:50 Urine Nitrate Negative (Negative) 11/08/22 09:50 Urine Bilirubin 1+ (Negative) H 11/08/22 09:50 Urine Urobilinogen 1 mg/dL (Negative) H 11/08/22 09:50 Ur Leukocyte Esterase Negative (Negative) 11/08/22 09:50 Urine RBC 50-80 /hpf (0-2) H 11/08/22 09:50 Urine WBC 10-15 /hpf (0-5) H 11/08/22 09:50 Ur Squamous Epith Cells 0-4 /hpf (0-5) H 11/08/22 09:50 Amorphous Sediment Not Reportable 11/08/22 09:50 Urine Bacteria 1+ /hpf (NONE) H 11/08/22 09:50 Discharge Plan Discharge Patient Disposition: Home Clinical Impression: Kidney stone on right side UTI (urinary tract infection) Qualifiers: Urinary tract infection type: acute cystitis Hematuria presence: with hematuria Qualified Code(s): N30.01 - Acute cystitis with hematuria Condition: Stable Prescriptions: New Naprosyn 500 mg tablet 500 mg PO BID PRN (Reason: pain) Qty: 20 0RF ondansetron 4 mg tablet,disintegrating 4 mg PO Q8H PRN (Reason: nausea and vomiting) Qty: 20 0RF Bactrim DS 800-160 mg tablet 1 tab PO BID 5 Days Qty: 10 0RF Discharge Orders: Discharge ED (Routine); Ordered 11/08/22 Ordered By: Nakul Cervantes Referrals: Mansoor Crump MD [Primary Care Provider] - Discharge Diet: Advance as tolerated and Clear Liquid Discharge Activity: Increase activity as tolerated Patient Instructions: Kidney Stones (ED), Opioid Safety Activity Restrictions/Additional Instructions: Follow-up with medical provider as directed. Case management should be contacted in the next several days set up an appointment with urologist for follow-up. Take medications as prescribed. Return to the ER or your medical provider if condition worsens. Please read and understand discharge instructions. Thank you for choosing [facility] for your healthcare needs today. Please realize this is an emergency room and that we are providing you with a medical screening exam and this may not be complete and all inclusive of all the testing and or work up that you may need to determine your ailment or severity of your illness. It is very important that you follow up as instructed or that you return to the Emergency Department should you have concerns or if your condition changes or worsens in any way. Coding Level of Care Code ED Web Services Manager for Ej Haley
[2022-11-08] MEDS: sodium chloride 0.9% 1,000 ML 999 ML IV (10:08)
[2022-11-08 10:10] LABS: Alanine Aminotransferase 41 U/L (0-41); Albumin Level 4.5 g/dL (3.5-5.2); Alkaline Phosphatase 98 U/L (40-130); Aspartate Amino Transferase 23 U/L (0-40); Blood Urea Nitrogen 12 mg/dL (6-20); Calcium 9.9 mg/dL (8.5-10.5); Carbon Dioxide 22 mmol/L (22-29); Chloride 105 mmol/L (98-107); Globulin 3.3 g/dL (1.3-4.6); Glucose 115 mg/dL (65-115); Lipase 23 U/L (13-60); Osmolality Calculated 295 mOsm/kg (285-295); Sodium 142 mmol/L (136-145); Total Bilirubin 0.2 mg/dL (0.15-1.2); Total Protein 7.8 g/dL (6.6-8.7)
[2022-11-08] MEDS: ondansetron 2 mg/ML SDV 2 mL 4 MG IVP (10:13)
[2022-11-08 10:19] VITALS: RESP 18
[2022-11-08] MEDS: morphine 4 mg/mL SDV 1 mL IVP (10:19)
[2022-11-08 10:26] LABS: Bilirubin Urine 1+ (Negative); Blood Urine 3+ (Negative); Glucose Urine UA Norm (Normal); Ketones Urine Negative (Negative); Nitrate Urine Negative (Negative); Protein Urine 2+ (Negative); Specific Gravity, Urine 1.025 (1.005-1.030); Urine Appearance Cloudy (CLEAR); Urine Color Amber (Yellow); Urobilinogen Urine 1 mg/dL (Negative); pH Urine 5 (5-7)
[2022-11-08 10:27] LABS: Add Urine Microscopic? YES; Leukocyte Esterase Urine Negative (Negative); RBC Urine 50-80 /hpf (0-2)
[2022-11-08 10:28] LABS: Add Urine Culture? Yes; Bacteria Urine 1+ /hpf; Squamous Epithelial Cell Urine 0-4 /hpf (0-5)
[2022-11-08 11:04] LABS: Anion Gap 18.7 (5-19); Potassium 3.7 mmol/L (3.5-5.1)
[2022-11-08] MEDS: ketorolac 30 mg/mL INJ IVP (11:09)
[2022-11-08] MEDS: metoclopramide 5 mg/mL SDV 2 mL 10 MG IVP (11:13)
[2022-11-08 11:19] VITALS: BP 151/90; PULSE 58; RESP 17; O2SAT 100
[2022-11-08 11:35] VITALS: BP 146/76; PULSE 66; RESP 17; O2SAT 99
[2022-11-08 12:15] VITALS: BP 132/79; PULSE 60; O2SAT 99
--- NOTE | 2022-11-08 13:41 | DCPLANNER ---
breakfast manager had message to schedule a follow up appointment for patient with urology. breakfast manager spoke with patient to confirm where patient would like referral sent. Patient stated that he would like the referral sent to [facility]. breakfast manager faxed patients information to [facility], patients information will be reviewed, clinic will call patient with appointment information.
== END 2022-11-08 12:16 | disposition home or self-care (01) ==
PROVIDERS: Emergency Provider Physician Assistant; PCP Family Medicine
DX: N30.01 Acute cystitis with hematuria (principal); N13.2 Hydronephrosis with renal and ureteral calculous obstruction
CPT/HCPCS: 74176; 80053; 81001; 83690; 85025; 87086; 96374; 96375; 99285; J1885; J2270; J2405; J2765; J7030

== ENCOUNTER 2023-01-06 18:05 | Emergency (ER) | payer OTHER, SELFPAY ==
[2023-01-06 18:26] VITALS: BP 148/88; PULSE 80; RESP 80; TEMP 36.7; O2SAT 96; BMI 42.3
--- NOTE | 2023-01-06 18:50 | CTR_ITS ---
PROCEDURE INFORMATION: Exam: CT Thoracic Spine Without Contrast Exam date and time: 01/06/2023 6:55 PM Age: 22 years old Clinical indication: Injury or trauma; Other: Hit in back with heavy box; Work related; Blunt trauma (contusions or hematomas); Additional info: Thoracic spine injury TECHNIQUE: Imaging protocol: Computed tomography of the thoracic spine without contrast. Radiation optimization: All CT scans at this facility use at least one of these dose optimization techniques: automated exposure control; mA and/or kV adjustment per patient size (includes targeted exams where dose is matched to clinical indication); or iterative reconstruction. REPORTING DATA: Count of CT and Cardiac NM exams in prior 12 months: This patient has received [address] and 0 known cardiac nuclear medicine studies in the 12 months prior to the current study. COMPARISON: CT kidney stone [id number] 11/08/2022 10:29 AM RADIATION DOSE METRICS: Total DLP (mGy-cm): 1196 FINDINGS: Bones/joints: Bony fusion of the C4-C5 vertebral bodies, bilateral facets and spinous processes. Soft tissues: Unremarkable. CT/CT thoracic spin wo con* [id number] IMPRESSION: No acute thoracic spine fracture or listhesis.
--- NOTE | 2023-01-06 18:50 | ED_ITS ---
HPI - Back Pain/Injury General: Chief Complaint: Back Pain/Injury Stated Complaint: Back Pain WC Time Seen by Provider: 01/06/23 18:32 History of Present Illness: This patient is a 22-year-old white male who presents to the emergency department after sustaining an injury to his back at work. Patient states he was bending over and at that time a 50 pound box of chicken landed on his mid back. He states the box fell from about 7 feet. He works at [employer]. Injury occurred at 4:30 PM today. He is not having any numbness weakness or tingling in the extremities. Review of Systems General: Reports: 10 or more systems reviewed and unremarkable except in HPI and below PFSH ED PFSH: Medical History (Updated 01/06/23 @ 20:40 by Xiang Chowdhury MD) No pertinent family history Surgical History (Updated 11/08/22 @ 12:20 by SNEHA Gold) No pertinent past surgical history Physical Exam Const: COMMON NORMALS: no acute distress, patient oriented x3 and no limitations GENERAL APPEARANCE: cooperative and comfortable HENMT: COMMON NORMALS: normocephalic, atraumatic, Normal nasal mucous membranes and turbinates present, moist oral mucous membranes and oropharynx normal HEAD & SCALP: normal to inspection, normocephalic and atraumatic FACE & SINUS: normal facial exam NOSE: Normal nasal mucous membranes and turbinates present Eye: COMMON NORMALS: Equal, round and reactive pupils present, EOMs intact bilaterally and conjunctivae normal GENERAL EYE: appearance normal, both eyes and all related structures CONJUNCTIVA: Yes conjunctivae normal PUPIL: Yes Equal, round and reactive pupils present Neck/C-Spine: COMMON NORMALS: supple and no JVD Chest: COMMONS NORMALS: normal inspection of the chest Resp: COMMON NORMALS: normal respiratory effort and clear to auscultation bilaterally AUSCULTATION: clear to auscultation bilaterally Cardio: COMMON NORMALS: no JVD, regular rate, regular rhythm, No gallops present (Cardio), No murmurs present (Cardio) and No rub (Cardio) RATE: regular rate RHYTHM: regular rhythm GI: COMMON NORMALS: Normal to inspection, nondistended, normoactive bowel sounds present, Soft to palpation and non-tender AUSCULTATION: Yes normoactive bowel sounds PALPATION: Yes Soft to palpation Back/Pelvis: OTHER: Pain palpation over the mid upper thoracic spine. No ecchymosis. Extremity: COMMON NORMALS: normal to inspection Neuro: COMMON NORMALS: patient oriented x3 and CN's II-XII intact bilaterally Psych: COMMON NORMALS: mental status grossly normal, Normal thought process present and cooperative THOUGHT PROCESS: Normal thought process present Skin: COMMON NORMALS: no rashes or lesions noted, turgor normal and no jaundice GENERAL SKIN EXAM: no rashes or lesions noted and turgor normal Course Vital Signs: Vital signs: Vital Signs Temperature 98.1 F 01/06/23 18:26 Pulse Rate 80 01/06/23 18:26 Respiratory Rate 80 H 01/06/23 18:26 Blood Pressure 148/88 01/06/23 18:26 Pulse Oximetry 96 01/06/23 18:26 Oxygen Delivery Me thod Room Air 01/06/23 18:26 MDM - Back Pain/Injury Medical Decision Making CT of the thoracic spine was read by the radiologist as normal. Patient declined pain medication in the emergency department. Recommended he take ibuprofen as needed and use ice to the area 3-4 times per day for 15 to 20 minutes each time. Labs Radiology Impressions Thoracic Spine CT 01/06/23 18:50 IMPRESSION: No acute thoracic spine fracture or listhesis. All radiology interpretation(s) finalized by discharge Discharge Plan Discharge Patient Disposition: Home Clinical Impression: Contusion of back Condition: Stable Prescriptions: No Action Naprosyn 500 mg tablet 500 mg PO BID PRN (Reason: pain) Qty: 20 0RF ondansetron 4 mg tablet,disintegrating 4 mg PO Q8H PRN (Reason: nausea and vomiting) Qty: 20 0RF Discharge Orders: Discharge ED (Routine); Ordered 01/06/23 Ordered By: Xiang Chowdhury Patient Instructions: Opioid Safety, Pain Management Coding Level of Care Code ED Compensation And Benefits Manager for Ej Haley
[2023-01-06 21:10] VITALS: PULSE 89; O2SAT 98
== END 2023-01-06 21:11 | disposition home or self-care (01) ==
PROVIDERS: Emergency Provider Emergency Medicine
DX: S20.224A Contusion of middle back wall of thorax, initial encounter (principal); W20.8XXA Other cause of strike by thrown, projected or falling object, initial encounter; Y99.0 Civilian activity done for income or pay; Y92.511 Restaurant or cafe as the place of occurrence of the external cause
CPT/HCPCS: 72128; 99284

== ENCOUNTER 2023-11-27 02:54 | Emergency (ER) | payer SELFPAY ==
[2023-11-27 03:00] VITALS: BP 152/80; PULSE 74; RESP 18; TEMP 36.6; O2SAT 97; BMI 31.3
[2023-11-27 03:07] VITALS: BP 152/80; PULSE 79; RESP 18; O2SAT 97
[2023-11-27 04:00] VITALS: RESP 18; O2SAT 98
[2023-11-27] MEDS: oxyCODONE-APAP 5-325 mg Tablet 2 TAB PO (04:00)
[2023-11-27] MEDS: ketorolac 60 mg/2 mL INJ IM (04:01)
[2023-11-27] MEDS: clindamycin 150 mg Capsule 300 MG PO (04:01)
[2023-11-27] MEDS: dexamethasone 4 mg Tablet 10 MG PO (04:01)
[2023-11-27 04:26] VITALS: BP 134/91; PULSE 57; RESP 18; O2SAT 98
--- NOTE | 2023-11-27 04:45 | ED_ITS ---
HPI - Dental/Oral 2 General: Chief complaint: Dental/Oral Stated complaint: right mouth pain into ear Time Seen by Provider: 11/27/23 03:23 History of Present Illness: 23-year-old healthy male complaining of right sided jaw pain, mild swelling, for the last couple of hours. It started suddenly. No pain with swallowing. No sore throat. Pain radiates to the right ear. No hearing problems. No fever. Related Data Previous Rx's Medication Instructions Recorded naproxen 500 mg tablet (Naprosyn) 500 mg PO BID PRN pain #20 tabs 11/08/22 ondansetron 4 mg disintegrating 4 mg PO Q8H PRN nausea and 11/08/22 tablet vomiting #20 tabs clindamycin HCl 300 mg capsule 300 mg PO Q6H 10 days #40 caps 11/27/23 hydrocodone 5 mg-acetaminophen 325 1 tab PO Q8H PRN pain #7 tabs 11/27/23 mg tablet Allergies Allergy/AdvReac Type Severity Reaction Status Date / Time No Known Allergies Allergy Verified 11/09/20 11:23 [facility] ED 2 PFSH: Medical History (Updated 11/27/23 @ 03:30 by Gray Guadarrama DO) No pertinent family history Surgical History No pertinent past surgical history Physical Exam 2 Const: COMMON NORMALS: no acute distress GENERAL APPEARANCE: cooperative; not ill appearing and not frail appearing HENMT: COMMON NORMALS: normocephalic, atraumatic and Normal external nose present HEAD & SCALP: normocephalic and atraumatic FACE & SINUS: edema on the right (minimal); no erythema NOSE: Normal external nose present and No nasal discharge present TYMPANIC MEMBRANE: TM normal on the right MOUTH: tongue normal TEETH & GINGIVA: Yes caries and Yes poor dentition TEETH & GINGIVA IMAGES: 1. abscess present Eye: COMMON NORMALS: Equal, round and reactive pupils present and EOMs intact bilaterally PUPIL: Yes Equal, round and reactive pupils present Neck/C-Spine: GENERAL: Yes trachea midline Chest: CHEST: Yes Symmetrical chest wall rise Resp: COMMON NORMALS: normal respiratory effort, No retractions, No use of accessory muscles and clear to auscultation bilaterally AUSCULTATION: clear to auscultation bilaterally Cardio: COMMON NORMALS: regular rate and regular rhythm RATE: regular rate RHYTHM: regular rhythm GI: COMMON NORMALS: Normal to inspection, nondistended, normoactive bowel sounds present Extremity: COMMON NORMALS: no pedal edema Neuro: KIRSTEN COMA SCALE: document GCS findings Kirsten coma scale eye opening: Spontaneous Kirsten coma scale verbal response: Orientated Kirsten coma scale motor response: Obey commands [place] coma scale total score: 15 S ENSORY EXAM: Yes extremities (intact) Psych: COMMON NORMALS: speech normal SPEECH: Yes normal speech Skin: COMMON NORMALS: no rashes or lesions noted GENERAL SKIN EXAM: no rashes or lesions noted Course 2 Vital Signs: Vital signs: Vital Signs Temperature 97.9 F 11/27/23 03:00 Pulse Rate 57 L 11/27/23 04:26 Respiratory Rate 18 11/27/23 04:26 Blood Pressure 134/91 11/27/23 04:26 Pulse Oximetry 98 11/27/23 04:26 Oxygen Delivery Me thod Room Air 11/27/23 03:07 MDM - Dental/Oral Medical Decision Making Right-sided dental abscess treated with 1 dose of dexamethasone, antibiotics, pain medication. Dental follow-up. No radiology studies performed this visit Discharge Plan Discharge Patient Disposition: Home Clinical Impression: Dental abscess Condition: Stable Prescriptions: New hydrocodone-acetaminophen 5-325 mg tablet 1 tab PO Q8H PRN (Reason: pain) Qty: 7 0RF clindamycin HCl 300 mg capsule 300 mg PO Q6H 10 Days Qty: 40 0RF No Action Naprosyn 500 mg tablet 500 mg PO BID PRN (Reason: pain) Qty: 20 0RF ondansetron 4 mg tablet,disintegrating 4 mg PO Q8H PRN (Reason: nausea and vomiting) Qty: 20 0RF Discharge Orders: Discharge ED (Routine); Ordered 11/27/23 Ordered By: Gray Guadarrama Patient Instructions: Dental Abscess (ED), Opioid Safety, Pain Management Activity Restrictions/Additional Instructions: Medication as directed. Ice can help, as well as heat. Call your dentist on Tuesday for a follow-up appointment. Return for trouble breathing, tongue swelling, significant facial swelling despite treatment, other concerning symptoms. Coding Level of Care Code ED Air Defense Specialist for Ej Haley
== END 2023-11-27 04:28 | disposition home or self-care (01) ==
PROVIDERS: Emergency Provider Emergency Medicine
DX: K04.7 Periapical abscess without sinus (principal)
CPT/HCPCS: 96372; 99284; J1885; J8540

== ENCOUNTER 2024-03-27 13:02 | Emergency (ER) | payer SELFPAY ==
[2024-03-27 13:17] VITALS: BP 134/83; PULSE 73; RESP 16; TEMP 36.7; O2SAT 99; BMI 37.9
== END 2024-03-27 15:00 | disposition left against medical advice (07) ==
PROVIDERS: Emergency Provider Family Medicine
DX: Z53.21 Procedure and treatment not carried out due to patient leaving prior to being seen by health care provider (principal)
CPT/HCPCS: 81000